=== PATIENT | female | born 2000 | race American Indian/Alaskan Native ===

== ENCOUNTER 2020-05-04 08:46 | Emergency (ER) | payer SELFPAY ==
--- NOTE | 2020-05-04 10:26 | Emergency Department Report ---
ED Syncope HPI - General Chief Complaint: Arrhythmia/Palpitations Stated Complaint: DIZZY Time Seen by Provider: 05/04/20 09:00 Source: patient, EMS Exam Limitations: no limitations - History of Present Illness Initial Comments: This is a 19 yo female without significant medical hx who presents with lightheadedness and syncope while at work. 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 She had the overall feeling dizzy, she stated that her vision was blurry. Objects are spinning around. She felt out. She had a syncopal episode. She denies chest pain. Denies leg pain. Denies recent travel. No use of oral contraceptives. No family history of heart disease or blood clots. Last menstrual period within the last month. Last sexual intercourse in January. She feels well now. She is ambulatory without difficulty. Denies headache. She feels that she may have been dehydrated. She was told that her blood pressure was low at work. Timing/Prior Episodes: no prior history, single episode today Precipitating Factors: Positive: blurred vision, lightheadedness Context: standing Loss of Consciousness: brief (seconds) Current Symptoms: back to normal - Related Data Allergies/Adverse Reactions: Allergies No Known Allergies Allergy (Unverified 05/04/20 09:13) ED Review of Systems ROS: Stated complaint: DIZZY Other details as noted in HPI Comment: All other systems reviewed and negative Constitutional: denies: fever, malaise Respiratory: denies: cough Cardiovascular: denies: chest pain Gastrointestinal: denies: abdominal pain, nausea, vomiting Neurological: denies: headache, weakness ED Past Medical Hx - Past Medical History Previous Medical History?: No - Surgical History Past Surgical History?: No - Social History Smoking Status: Never Smoker Substance Use Type: Alcohol ED Physical Exam - General Limitations: No Limitations General appearance: alert, in no apparent distress - Head Head exam: Present: atraumatic, normocephalic - Eye Eye exam: Present: normal appearance - ENT ENT exam: Present: mucous membranes moist - Neck Neck exam: Present: normal inspection, full ROM - Respiratory Respiratory exam: Present: normal lung sounds bilaterally. Absent: respiratory distress, wheezes, rales, rhonchi - Cardiovascular Cardiovascular Exam: Present: regular rate, normal rhythm, normal heart sounds. Absent: systolic murmur, diastolic murmur, rubs, gallop - GI/Abdominal GI/Abdominal exam: Present: soft, normal bowel sounds. Absent: distended, tenderness, guarding, rebound - Back Exam Back exam: Present: normal inspection - Neurological Exam Neurological exam: Present: alert, oriented X3 - Psychiatric Psychiatric exam: Present: normal affect, normal mood - Skin Skin exam: Present: warm, dry, intact, normal color. Absent: rash ED Course Vital Signs 05/04/20 09:00 Temperature 98.8 F Pulse Rate 88 Respiratory 18 Rate Blood Pressure 107/65 Blood Pressure 119/69 [Left] O2 Sat by Pulse 100 Oximetry ED Medical Decision Making - EKG Data -: EKG Interpreted by Me EKG shows normal: sinus rhythm, axis, intervals, ST-T waves Rate: normal - EKG Data Interpretation: normal EKG (Incomplete right bundle branch block) - Medical Decision Making Ms. Sun presents with syncope preceding symptoms of lightheadedness feeling flushed and hot. I suspect mild dehydration vasovagal syncope. She understands to rest and hydrate. She is discharged home with return precautions. I do not suspect lethal arrhythmia or pulmonary embolism. She is PERC negative Critical care attestation.: If time is entered above; I have spent that time in minutes in the direct care of this critically ill patient, excluding procedure time. ED Disposition Clinical Impression: Vasovagal syncope, Dehydration Disposition: DC-01 TO HOME OR SELFCARE Is pt being admited?: No Does the pt Need Aspirin: No Condition: Stable Instructions: Syncope (ED), Dehydration (ED) Referrals: JAYLEN MUNOZ MD [Staff Physician] - 3-5 Days Forms: Work/School Release Form(ED)
[2020-05-04 10:40] VITALS: BP 108/59
== END 2020-05-04 11:47 | disposition home or self-care (01) ==
LOC: ED 08:46
DX: E86.0 Dehydration (principal); R42 Dizziness and giddiness
CPT/HCPCS: 93005; 99283